=== PATIENT | female | born 1950 | race Caucasian/White ===

== ENCOUNTER 2018-11-03 23:26 | Inpatient (IN) | payer MEDICARE, BC ==
[~2018-11-03] VITALS: Ht 162.6 cm; Wt 66.1 kg
--- NOTE | 2018-11-04 00:05 | NUR ---
PT STATES SHE IS HAVING A BOWEL MOVEMENT AT THIS TIME. PT UNDRESSED AND CLEANED. ERMD AWARE. NO LOOSE STOOL, SOFT STOOL.
--- NOTE | 2018-11-04 00:22 | NUR ---
DEE PORTER [phone]
[2018-11-04 00:24] LABS: BASOPHILS # (AUTO) 0.01 x10^3/uL (0-0.1); BASOPHILS % (AUTO) 0 % (0-1); EOSINOPHILS # (AUTO) 0.07 x10^3/uL (0-0.4); EOSINOPHILS % (AUTO) 1 % (1-7); LYMPHOCYTES % (AUTO) 12 % (22-44); MD NO; MEAN CORPUSCULAR HEMOGLOBIN 29.9 pg (27.0-34.8); MEAN CORPUSCULAR HGB CONC 34.9 g/dL (32.4-35.8); MEAN CORPUSCULAR VOLUME 85.6 fL (80-100); MEAN PLATELET VOLUME 7.4 fL (7.4-10.4); MONOCYTES # (AUTO) 0.55 x10^3/uL (0.2-0.8); MONOCYTES % (AUTO) 9 % (2-9); NEUTROPHILS # (AUTO) 5.01 x10^3/uL (1.8-6.8); NEUTROPHILS % (AUTO) 78 % (42-75); PLATELET COUNT 224 x10^3/uL (130-400); RED CELL DISTRIBUTION WIDTH 13.6 % (9.6-15.2)
[2018-11-04 00:34] LABS: ALANINE AMINOTRANSFERASE 38 U/L (12-78); ALBUMIN 3.7 g/dL (3.4-5.0); ANION GAP 12 mmol/L (5-15); CHLORIDE 103 mmol/L (98-107); CREATININE 0.71 mg/dL (0.55-1.02)
[2018-11-04 00:38] LABS: ALKALINE PHOSPHATASE 161 U/L (45-117); BILIRUBIN,TOTAL 0.6 mg/dL (0.2-1.0); TOTAL PROTEIN 7.4 g/dL (6.4-8.2); TROPONIN I < 0.015 ng/mL (0.000-0.045)
[2018-11-04] MEDS ORDERED: SODIUM CHLORIDE 0.9% 1,000ML IVBOLUS ONE (01:00)
[2018-11-04] MEDS ORDERED: ASPI-496 PO (01:24)
[2018-11-04] MEDS ORDERED: LISI-167 PO (01:24)
--- NOTE | 2018-11-04 01:26 | NUR ---
STRAIGHT CATH ATTEMPTED WITH NO URINE OUT PUT. DEBBIE OLIVARES NOTIFIED, IV FLUIDS ORDERED.
[2018-11-04] MEDS ORDERED: ONDANSETRON 2MG/ML, 2ML IVPush PRN (02:00)
[2018-11-04] MEDS ORDERED: GABAPENTIN 300 MG CAPSULE PO PRN (02:00)
[2018-11-04] MEDS ORDERED: ONDANSETRON ODT 4 MG PO PRN (02:00)
[2018-11-04] MEDS ORDERED: ACETAMINOPHEN 325 MG TABLET PO PRN (02:00)
[2018-11-04] MEDS ORDERED: LABETALOL 20 MG/4 ML IVPush PRN (02:00)
[2018-11-04] MEDS ORDERED: BISACODYL 10 MG SUPP PR PRN (02:00)
[2018-11-04] MEDS ORDERED: HEPARIN 5,000 UNITS/ML, 1ML SQ SCH (02:00)
[2018-11-04] MEDS ORDERED: POTASSIUM CHLORIDE 20 MEQ TAB.ER.PRT PO ONE (02:00)
[2018-11-04] MEDS ORDERED: LABETALOL 5MG/ML, 20ML IVPush PRN (02:00)
[2018-11-04] MEDS ORDERED: DOCUSATE 100 MG CAPSULE PO PRN (02:00)
[2018-11-04] MEDS ORDERED: PROMETHAZINE 25 MG/ML, 1ML IM PRN (02:00)
[2018-11-04] MEDS ORDERED: hydrALAzine 20 MG/ML, 1ML IVPush PRN (02:00)
[2018-11-04] MEDS ORDERED: POLYETHYLENE GLYCOL 17 GM PACKET PO PRN (02:00)
[2018-11-04 02:12] LABS: FREE T4 (FREE THYROXINE) 1.3 ng/dL (0.76-1.46); THYROID STIMULATING HORMONE 1.27 mIU/L (0.358-3.740)
[2018-11-04 02:14] LABS: HEMOGLOBIN A1C 5.5 % (4.2-6.3)
[2018-11-04] MEDS: SODIUM CHLORIDE 0.9% 1,000 ML IV SCH ×2 (02:18→10:10)
[2018-11-04 03:10] LABS: CULTURE INDICATED? NO; MICROSCOPIC NOT IND
[2018-11-04] MEDS ORDERED: ASPIRIN 81 MG TABLET EC PO SCH (06:00)
[2018-11-04 07:10] VITALS: BP 135/68
[2018-11-04 08:34] LABS: RAPID INFLUENZA A Negative (Negative); RAPID INFLUENZA B Negative (Negative)
[2018-11-04 10:29] LABS: TROPONIN I < 0.015 ng/mL (0.000-0.045)
[2018-11-04 12:55] VITALS: BP 130/71
[2018-11-04] MEDS ORDERED: LISINOPRIL 10 MG TABLET PO SCH (21:00)
== END 2018-11-04 14:10 | disposition home or self-care (01) | DRG 866 ==
LOC: ED 11-04 01:18 → EDIP 11-04 01:33 → 4NOR 11-04 02:09
PROVIDERS: ADMIT Internal Medicine; ATTEND Internal Medicine
DX: B34.9 Viral infection, unspecified (principal); E87.2 Acidosis; R53.1 Weakness; E87.6 Hypokalemia; R50.9 Fever, unspecified; R11.0 Nausea; F41.9 Anxiety disorder, unspecified; I10 Essential (primary) hypertension; Z80.1 Family history of malignant neoplasm of trachea, bronchus and lung; Z82.0 Family history of epilepsy and other diseases of the nervous system; Z83.3 Family history of diabetes mellitus; Z90.710 Acquired absence of both cervix and uterus
CPT/HCPCS: 36415; 71045; 80053; 81003; 83036; 83605; 83735; 84439; 84443; 84484; 85025; 87400; 93005; 99285; G0378; J1644; J7030